=== PATIENT | female | born 1985 | race Caucasian/White ===

== ENCOUNTER 2024-12-21 01:36 | Emergency (ER) | payer SELFPAY ==
[~2024-12-21] VITALS: Ht 170.2 cm; Wt 50.8 kg
[2024-12-21 06:00] VITALS: BP 108/60; TEMP 97.6; O2SAT 97
== END 2024-12-21 06:16 | disposition home or self-care (01) ==
LOC: M ED 01:36
DX: T40.2X1A Poisoning by other opioids, accidental (unintentional), initial encounter (principal); V47.0XXA Car driver injured in collision with fixed or stationary object in nontraffic accident, initial encounter; Y92.410 Unspecified street and highway as the place of occurrence of the external cause; Y93.89 Activity, other specified; Y99.9 Unspecified external cause status; Z91.040 Latex allergy status